=== PATIENT | male | born 1935 | race Caucasian/White ===

== ENCOUNTER 2017-05-12 16:09 | Inpatient (IN) | payer MEDICARE, OTHER ==
[~2017-05-12] VITALS: Ht 177.8 cm; Wt 140.9 kg
[2017-05-12 20:30] VITALS: BP 104/71; PULSE 92; RESP 19; TEMP 96.9; O2SAT 94
[2017-05-12] MEDS ORDERED: GLIP1TAB51 PO (21:33)
[2017-05-12] MEDS ORDERED: COLA100C PO (21:33)
[2017-05-12] MEDS ORDERED: ROSU10 PO (21:33)
[2017-05-12] MEDS ORDERED: COUM10TA PO (21:33)
[2017-05-12] MEDS ORDERED: TRAM50TA PO (21:33)
[2017-05-12] MEDS ORDERED: LISI2.5T3 PO (21:33)
[2017-05-12 21:35] VITALS: PULSE 106
[2017-05-12] MEDS ORDERED: METOPROLOL TARTRATE 25 MG TAB PO PRN (22:15)
[2017-05-12] MEDS ORDERED: SODIUM CHLORID 0.9% 500 ML IV PRN (22:15)
[2017-05-12] MEDS ORDERED: INSULIN HUMAN REGULAR 1,000 UNITS/10 ML VIAL SQ PRN (22:15)
[2017-05-12] MEDS ORDERED: POVIDONE IODINE 5% (ANTISEPSIS KIT) 4 APPLICATIONS EACH NARE PRN (22:15)
[2017-05-12] MEDS ORDERED: CHLORHEXIDINE GLUCONATE 2 % 1 PACK (2 CLOTHS) TOPICAL PRN (22:15)
[2017-05-12] MEDS ORDERED: LACTATED RINGER'S 1000 ML IV PRN (22:15)
[2017-05-12] MEDS ORDERED: NALOXONE HCL 0.4 MG/ML AMP IV PRN (22:30)
[2017-05-12] MEDS: MORPHINE SULFATE 30 MG/30 ML PCA IV SCH (22:40)
[2017-05-12] MEDS: LACTATED RINGER'S 1000 ML INJ 1,000 ML IV SCH (22:43)
[2017-05-13] VITALS (10 sets, daily range): BP systolic 113–157; BP diastolic 49–93; PULSE 93–116; RESP 18–20; TEMP 97.8–99.3; O2SAT 92–100
[2017-05-13 00:14] LABS: BLOOD, URINE NEG (NEG); GLUCOSE,URINE 70 mg/dL (NEG); HYALINE CAST, URINE 1 /lpf (RARE); KETONE, URINE TRACE mg/dL (NEG); MUCUS URINE FEW /lpf (OCC); NITRITE,URINE NEG (NEG); URINE COLOR YELLOW (YELLW/STRAW)
[2017-05-13 00:15] LABS: COMMENT (UR) CULT NOT INDICATED; CULTURE IF INDICATED CULT NOT INDICATED
[2017-05-13] MEDS: PCA - TOTAL MG MORPHINE DELIVERED PER SHIFT SCH ×3 (06:00→22:00)
--- NOTE | 2017-05-13 06:30 | PD.ORT.PN ---
Subjective Subjective Remarks s/p fall at home. transferred from [facility] [place] reports left hip pain. no other complaints history of Afib and takes coumadin Objective Vitals Vital Signs Date Time Temp Pulse Resp B/P Pulse Ox O2 Delivery O2 Flow Rate FiO2 05/13/17 04:35 97.8 93 18 135/78 94 05/13/17 00:30 98.2 94 18 150/76 95 05/12/17 21:35 106 05/12/17 20:30 96.9 92 19 104/71 94 I/O 05/12/17 05/12/17 05/12/17 05/13/17 05/13/17 05/13/17 07:00 15:00 23:00 07:00 15:00 23:00 Intake Total 240 ml 448 ml Balance 240 ml 448 ml Intake Oral 240 ml IV Total 448 ml Objective Remarks LLE: +bucks traction. pain with movement of hip. nvi Assessment & Plan Assessment and Plan 1) Left Periprosthetic Proximal Femur fx -sign consents -INR came back today as 1.8. too high to safely proceed with surgery today. -regular diet -NPO after MN -10mg Vit K -redraw INR at 1500 -plan for surgery tomorrow Amari Almonte May 13, 2017 06:30
[2017-05-13 06:58] LABS: INTERNATIONAL NORMALIZED RATIO 1.8 RATIO; PROTHROMBIN TIME - PATIENT 20.1 SEC (9.8-11.6)
[2017-05-13 06:59] LABS: AUTOMATED NEUTROPHIL # 3.9 TH/MM3 (1.8-7.7); BASOPHIL % 0.4 % (0.0-2.0); EOSINOPHIL # 0.3 TH/MM3 (0-0.4); EOSINOPHIL % 5.6 % (0.0-4.0); HEMATOCRIT 35.2 % (39.0-51.0); HEMO FLAGS DIFF FINAL; LYMPH % 16.5 % (9.0-44.0); MEAN CORPUSCULAR HEMOGLOBIN 32.3 PG (27.0-34.0); MONO % 13.2 % (0.0-8.0); NEUT % 64.3 % (16.0-70.0); PLATELET COUNT 121 TH/MM3 (150-450); RED BLOOD COUNT 3.71 MIL/MM3 (4.50-5.90); RED CELL DISTRIBUTION WIDTH 13.6 % (11.6-17.2); WHITE BLOOD COUNT 6.1 TH/MM3 (4.0-11.0)
[2017-05-13 07:17] LABS: BICARBONATE 27.7 MEQ/L (21.0-32.0); POTASSIUM 4.8 MEQ/L (3.5-5.1)
--- NOTE | 2017-05-13 07:52 | EKG ---
Date Performed: 05/12/2017 Time Performed: 21:57:54 PTAGE: 81 years EKG: ATRIAL FIBRILLATION MODERATE INTRAVENTRICULAR CONDUCTION DELAY ABNORMAL RHYTHM ECG NO PREVIOUS TRACING DOCTOR: Milan Hooks Interpretating Date/Time 05/13/2017 07:49:39
[2017-05-13] MEDS ORDERED: PHYTONADIONE 10 MG/ML VIAL SQ ONE (08:30)
--- NOTE | 2017-05-13 08:35 | HHI.HP ---
[facility] Service Orthopedic Surgeons Primary Care Physician Ash Mera MD Admission Diagnosis Left Periprosthetic Proximal Femur Fracture Diagnoses: (1) Closed fracture of proximal end of femur Diagnosis: Principal Chief Complaint: Left Hip pain s/p fall at home Travel History International Travel<30 Days: No Contact w/Intl Traveler <30 Da: No History of Present Illness [facility] after suffering a fall at home. Patient states he slipped and fell at home and landed on his left leg. Reports immediate hip pain and was unable to walk. Was taken to [facility] where xrays were performed and diagnosed with left proximal femur fracture. Was transferred to [facility] where Dr Glover agreed to take over care. Patient denies any pain any where else other than left leg. Reports pain with movement or attempted weight bearing. Denies numbness, tingling, loss of sensation, loss of consciousness, dizziness, temperatures. Reports history of Afib for which he take coumadin and had an INR upon arrival of 2.8. Review of Systems Constitutional: DENIES: Diaphoretic episodes, Fatigue, Fever, Weight gain, Weight loss, Chills, Dizziness, Change in appetite, Night Sweats Cardiovascular: DENIES: Chest pain, Palpitations, Syncope, Dyspnea on Exertion , PND, Lower Extremity Edema, Orthopnea, Claudication Neurologic: DENIES: Abnormal gait, Headache, Localized weakness, Paresthesias, Seizures, Speech Problems, Tremor, Poor Balance Complete 12 point ROS completed and negative except for what is mentioned in the HPI Past Family Social History Past Medical History Afib knee replacement by Dr Singh HTN Hypercholesterolemia DMII Past Surgical History TKA by Dr Singh Reported Medications Current Medications Medications (Trade) Dose Ordered Sig/Sayra Route PRN Reason Start Time Stop Time Status Last Admin Dose Admin Lactated Ringer's 1,000 ml @ 30 mls/hr Q24H PRN IV SEE LABEL COMMENTS 05/12/17 22:15 05/15/17 22:14 Sodium Chloride (NS 500 ml Inj) 500 ml @ 30 mls/hr [id number] PRN IV SEE LABEL COMMENTS 05/12/17 22:15 05/15/17 22:14 Morphine Sulfate (Morphine 1 Mg/ ml DAMPENER OPERATOR) 30 mg UNSCH IV 05/12/17 22:30 05/12/17 22:40 DAMPENER OPERATOR Dosage Infused (Pha) 1 Q8HR .XX 05/13/17 06:00 05/13/17 06:00 Naloxone HCl 0.4 mg 0.4 mg UNSCH PRN IV RESPIRATORY RATE LESS THAN 10 05/12/17 22:30 Lactated Ringer's (Lr 1000 ml Inj) 1,000 ml @ 80 mls/hr [id number] IV 05/12/17 22:30 05/12/17 22:43 Docusate Sodium (Colace) 100 mg BID PO 05/13/17 09:00 Glipizide (Glucotrol) 10 mg DAILY@ PO 05/13/17 08:00 Lisinopril (Prinivil) 2.5 mg DAILY PO 05/13/17 09:00 Atorvastatin Calcium (Lipitor) 20 mg HS PO 05/13/17 21:00 Allergies: Coded Allergies: No Known Allergies (Unverified , 05/12/17) patient reports no allerigies to food or medications Active Ordered Medications Current Medications Medications (Trade) Dose Ordered Sig/Sayra Route Start Time Stop Time Status Last Admin Lactated Ringer's 1,000 ml @ 30 mls/hr Q24H PRN IV 05/12/17 22:15 05/15/17 22:14 (NS 500 ml Inj) 500 ml @ 30 mls/hr [id number] PRN IV 05/12/17 22:15 05/15/17 22:14 (Morphine 1 Mg/ ml DAMPENER OPERATOR) 30 mg UNSCH IV 05/12/17 22:30 05/12/17 22:40 DAMPENER OPERATOR Dosage Infused (Pha) 1 Q8HR .XX 05/13/17 06:00 05/13/17 06:00 Naloxone HCl 0.4 mg 0.4 mg UNSCH PRN IV 05/12/17 22:30 (Lr 1000 ml Inj) 1,000 ml @ 80 mls/hr [id number] IV 05/12/17 22:30 05/12/17 22:43 (Colace) 100 mg BID PO 05/13/17 09:00 (Glucotrol) 10 mg DAILY@, PO 05/13/17 08:00 (Prinivil) 2.5 mg DAILY PO 05/13/17 09:00 (Lipitor) 20 mg HS PO 05/13/17 21:00 Reported Meds & Active Scripts Active Reported Coumadin (Warfarin) 10 Mg Tab 10 Mg PO DAILY Glipizide ER (Glipizide) 10 Mg Isabelle 10 Mg PO DAILY Take with breakfast or first main meal of the day Tramadol (Tramadol HCl) 50 Mg Tab 50 Mg PO BID PRN Crestor (Rosuvastatin Calcium) 10 Mg Tab 10 Mg PO HS Lisinopril 2.5 Mg Tab 2.5 Mg PO DAILY Colace (Docusate Sodium) 100 Mg Capsule 100 Mg PO BID Family History noncontributory Physical Exam Vital Signs Vital Signs Date Time Temp Pulse Resp B/P Pulse Ox O2 Delivery O2 Flow Rate FiO2 05/13/17 06:48 Room Air 05/13/17 04:35 97.8 93 18 135/78 94 05/13/17 00:30 98.2 94 18 150/76 95 05/12/17 21:35 106 05/12/17 20:30 96.9 92 19 104/71 94 Physical Exam General: well developed, well nourished, overweight 81yo white male in no acute distress Head: NC/AT Ears: Hearing intact bilaterally Eyes: Extraoccular motion intact. PERRL. Cranial Nerves: CN II-XII grossly intact Neck: supple no evidence of lymphadenopathy Abdomen: S/NT/ND Lungs: no audible wheezes at bedside. no use of accessory muscles while breathing Heart: no grade IV murmur present MSK: LLE - +bucks traction. NVI. pain with motion of hip RLE - full motion. no pain. NVI BUE - Full motion. no pain. NVI Laboratory Laboratory Tests Test 05/12/17 05/13/17 05/13/17 05/13/17 23:58 06:08 06:25 06:26 Urine Color YELLOW Urine Turbidity CLEAR Urine pH 5.0 Urine Specific [place] 1.022 Urine Protein TRACE Urine Glucose (UA) 70 Urine Ketones TRACE Urine Occult Blood NEG Urine Nitrite NEG Urine Bilirubin NEG Urine Urobilinogen LESS THAN 2.0 Urine Leukocyte Esterase NEG Urine RBC LESS THAN 1 Urine WBC 2 Urine Hyaline Casts 1 Urine Mucus FEW Microscopic Urinalysis Comment CULT NOT INDICATED Crossmatch Leukocyte-Reduced Red Blood Cells Blood Bank Comment Blood Type A POSITIVE A POSITIVE White Blood Count 6.1 Red Blood Count 3.71 Hemoglobin 12.0 Hematocrit 35.2 Mean Corpuscular Volume 95.0 Mean Corpuscular Hemoglobin 32.3 Mean Corpuscular Hemoglobin 34.0 Concent Red Cell Distribution Width 13.6 Platelet Count 121 Mean Platelet Volume 7.9 Neutrophils (%) (Auto) 64.3 Lymphocytes (%) (Auto) 16.5 Monocytes (%) (Auto) 13.2 Eosinophils (%) (Auto) 5.6 Basophils (%) (Auto) 0.4 Neutrophils # (Auto) 3.9 Lymphocytes # (Auto) 1.0 Monocytes # (Auto) 0.8 Eosinophils # (Auto) 0.3 Basophils # (Auto) 0.0 CBC Comment DIFF FINAL Differential Comment Prothrombin Time 20.1 Prothromb Time International 1.8 Ratio Sodium Level 135 Potassium Level 4.8 Chloride Level 103 Carbon Dioxide Level 27.7 Anion Gap 4 Blood Urea Nitrogen 24 Creatinine 1.37 Estimat Glomerular Filtration 50 Rate Random Glucose 219 Calcium Level 8.2 Antibody Screen NEGATIVE Result Diagram: 05/13/1762505/13/17625 Imaging Xrays reviewed from [facility] which show a displaced left periprosthetic proximal femur fracture Assessment & Plan Problem List: (1) Closed fracture of proximal end of femur Assessment and Plan 1) Left Periprosthetic Proximal Femur fx treatment options discussed with patient. this is a problem that will require surgical intervention. The patient agreed and consent was given to proceed with ORIF of left proximal femur. -sign consents -INR came back today as 1.8. too high to safely proceed with surgery today. -regular diet -NPO after MN -10mg Vit K -redraw INR at 1500 -plan for surgery tomorrow Amari Almonte May 13, 2017 08:35
[2017-05-13] MEDS: glipiZIDE 10 MG TAB PO SCH ×2 (09:09→17:27)
[2017-05-13] MEDS: LISINOPRIL 5 MG TAB PO SCH (09:09)
[2017-05-13] MEDS: DOCUSATE SODIUM 100 MG CAP PO SCH ×2 (09:10→23:03)
[2017-05-13] MEDS ORDERED: ONDANSETRON HCL 4 MG/2 ML VIAL IVP PRN (09:30)
[2017-05-13] MEDS ORDERED: SENNOSIDES 8.6 MG TAB PO PRN (09:30)
[2017-05-13] MEDS ORDERED: LACTULOSE SYRUP 20 GM/30 ML CUP PO PRN (09:30)
[2017-05-13] MEDS ORDERED: NALOXONE HCL 0.4 MG/ML AMP IV PRN (09:30)
[2017-05-13] MEDS ORDERED: cloNIDine HCL 0.1 MG TAB PO PRN (09:30)
[2017-05-13] MEDS ORDERED: DEXTROSE 50% IN WATER 50 ML VIAL(D50) IV PRN (09:30)
[2017-05-13] MEDS ORDERED: GLUCAGON 1 MG/ML VIAL OTHER PRN (09:30)
[2017-05-13] MEDS ORDERED: ACETAMINOPHEN/HYDROcodone 325 MG/5 MG TAB PO PRN (09:30)
[2017-05-13] MEDS ORDERED: ACETAMINOPHEN 325 MG TAB PO PRN ×2 (09:30)
[2017-05-13] MEDS ORDERED: ACETAMINOPHEN/HYDROcodone 325 MG/10 MG TAB PO PRN (09:30)
[2017-05-13] MEDS ORDERED: PILL SPLITTER OTHER PRN (09:45)
[2017-05-13] MEDS ORDERED: LORazepam 2 MG TAB PO PRN (10:15)
[2017-05-13] MEDS ORDERED: LORazepam 1 MG TAB PO PRN (10:15)
[2017-05-13] MEDS ORDERED: HALOPERIDOL LACTATE 5 MG/ML AMP IM PRN (10:15)
[2017-05-13] MEDS ORDERED: FLUMAZENIL 0.5 MG/5 ML VIAL IV PUSH PRN (10:15)
[2017-05-13] MEDS ORDERED: LORazepam 2 MG/ML VIAL IV PUSH PRN ×4 (10:15)
[2017-05-13] MEDS: METOPROLOL TARTRATE 25 MG TAB PO SCH ×2 (10:23→23:03)
--- NOTE | 2017-05-13 11:12 | PD.WCN.NOT ---
Wound Consult Description: Consult for Wound Management of right lea per Dr Glover Communicated with: Radha Yarbrough, RN Recommendation: Daily to right lower extremity: 1. Apply Single layer Xeroform to open wounds only 2. Cover with 4x4's 3. Secure with rolled gauze and tape 4. Date dressing Additional Information: Late Entry Patient seen @ 0840 this morning on [address] for wound management of right lea. Patient is noted in bucks traction on left leg. Right leg dressing of rolled gauze and Xeroform was removed to reveal light purple discoloration noted to the gaiter area of the moist leg with 3 wounds to lower anterior leg and 1 laterally on the lower leg. Patient states these wounds are from an accident prior to admission. All wounds on right lower extremity are partial thickness skinloss with red granulation tissue noted throughout wound beds without active drainage and without odor noted. Periwounds appear moist from the removed Xeroform that was covering the wounds and their periwounds. The most distal anterior P.T.S.L. wound measures 1.2cm x 1.4cm x 0.1cm and within this periwound there is a P.T.S.L. wound measuring 0.2cm x 0.2cm x <0.1cm and then within this periwound there is another P.T.S.L. wound measuring 0.4cm x 0.4cm x <0.1cm. There is a wound noted laterally measuring 0.6cm x 0.6cm x <0.1cm. All wounds were cleansed with NS and gauze. Single layer Xeroform was cut and applied to open wound beds only and covered with 4x4 gauze and secured with rolled gauze and tape, no tape was applied to skin. Corrine Mcwilliams [facility] May 13, 2017 11:11
[2017-05-13] MEDS: LACTATED RINGER'S 1000 ML INJ 1,000 ML IV SCH ×2 (12:12→23:05)
[2017-05-13] MEDS: INSULIN ASPART SUPPLEMENTAL SCALE SQ SCH ×3 (12:17→23:04)
--- NOTE | 2017-05-13 13:15 | PD.CONS ---
HPI Service [facility] Hospitalists Consult Requested By Rajeev Glover M.D. Reason for Consult Medical management Primary Care Physician Ash Mera MD Diagnoses: (1) Closed fracture of proximal end of femur History of Present Illness Written by Peng Conn, acting as scribe for Dr. Costa Palencia on 05/13/17 at 1315. Mr. Monroe is 81 yo, with past medical history inclusive of Atrial Fibrillation (stable since 1985), diabetes mellitus II (also stable diagnosed in 2000) and hyperlipidemia which is controlled. Mr. Monroe reported having had his right knee surgically repaired, with 5 interventions reported. It was during his last revision he reported to have developed septic shock. Mr. Monroe was initially admitted to [facility] on 05/12/17 after suffering a fall at home. He stated he "slipped on water" at home and landed on his left leg. He is said to have experienced immediate left hip pain and was unable to stand or walk. X-rays obtained indicated the presence of left proximal femur fracture. Mr. Monroe was subsequently transferred to [facility] with Dr Glover attending. Dr. Glover has consulted the hospitalist team to medically manage Mr. Monroe's non-orthopedic health issues. RN called 2/2 RVR in the 120s. Denies chest pain, shortness of breath, palpitations, nausea and vomiting Review of Systems Except as stated in HPI: all other systems reviewed are Neg Past Family Social History Allergies: Coded Allergies: No Known Allergies (Unverified , 05/12/17) patient reports no allerigies to food or medications Past Medical History Atrial Fibrillation (stable since 1985) diabetes mellitus II (diagnosed in 2000) hyperlipidemia Septic Shock. Past Surgical History Right knee repair with revision (5 procedures). Reported Medications Reported Meds & Active Scripts Active Reported Coumadin (Warfarin) 10 Mg Tab 10 Mg PO DAILY Glipizide ER (Glipizide) 10 Mg Isabelle 10 Mg PO DAILY Take with breakfast or first main meal of the day Tramadol (Tramadol HCl) 50 Mg Tab 50 Mg PO BID PRN Crestor (Rosuvastatin Calcium) 10 Mg Tab 10 Mg PO HS Lisinopril 2.5 Mg Tab 2.5 Mg PO DAILY Colace (Docusate Sodium) 100 Mg Capsule 100 Mg PO BID Active Ordered Medications Current Medications Medications (Trade) Dose Ordered Sig/Sayra Route Start Time Stop Time Status Last Admin (Morphine 1 Mg/ ml PLASTIC BOAT PATCHER) 30 mg UNSCH IV 05/12/17 22:30 05/13/17 14:08 PLASTIC BOAT PATCHER Dosage Infused (Pha) 1 Q8HR .XX 05/13/17 06:00 05/13/17 14:09 Naloxone HCl 0.4 mg 0.4 mg UNSCH PRN IV 05/12/17 22:30 (Lr 1000 ml Inj) 1,000 ml @ 80 mls/hr [id number] IV 05/12/17 22:30 05/13/17 12:12 (Colace) 100 mg BID PO 05/13/17 09:00 (Glucotrol) 10 mg DAILY@,17 PO 05/13/17 08:00 05/13/17 17:27 (Prinivil) 2.5 mg DAILY PO 05/13/17 09:00 05/13/17 09:09 (Lipitor) 20 mg HS PO 05/13/17 21:00 (Catapres) 0.1 mg Q6H PRN PO 05/13/17 09:30 (D50w (Vial) Inj) 50 ml UNSCH PRN IV 05/13/17 09:30 (Glucagon Inj) 1 mg UNSCH PRN OTHER 05/13/17 09:30 (Tylenol) 650 mg Q4H PRN PO 05/13/17 09:30 (Zofran Inj) 4 mg Q6H PRN IVP 05/13/17 09:30 (Tylenol) 650 mg Q6H PRN PO 05/13/17 09:30 (Bryan 5-325 Mg) 1 tab Q4H PRN PO 05/13/17 09:30 (Bryan 10-325 Mg) 1 tab Q4H PRN PO 05/13/17 09:30 (Narcan Inj) 0.4 mg UNSCH PRN IV 05/13/17 09:30 (Senokot) 17.2 mg Q12H PRN PO 05/13/17 09:30 (Lactulose Liq) 30 ml DAILY PRN PO 05/13/17 09:30 (Lopressor) 25 mg Q12HR PO 05/13/17 09:30 05/13/17 10:23 (Pill Splitter) 1 ea UNSCH PRN OTHER 05/13/17 09:45 (Folate) 1 mg DAILY PO 05/14/17 09:00 05/19/17 08:59 (Vitamin B1) 100 mg DAILY PO 05/14/17 09:00 (Theragran M Tab) 1 tab DAILY PO 05/14/17 09:00 05/19/17 08:59 (Romazicon Inj) 0.2 mg Q1M PRN IV PUSH 05/13/17 10:15 (Ativan) 1 mg Q4H PRN PO 05/13/17 10:15 (Ativan Inj) 1 mg Q4H PRN IV PUSH 05/13/17 10:15 (Ativan) 2 mg Q2H PRN PO 05/13/17 10:15 (Ativan Inj) 2 mg Q2H PRN IV PUSH 05/13/17 10:15 (Ativan Inj) 2 mg Q1H PRN IV PUSH 05/13/17 10:15 (Ativan Inj) 2 mg Q15M PRN IV PUSH 05/13/17 10:15 (Haldol Inj) 2 mg Q15M PRN IM 05/13/17 10:15 Family History Maternal side of his family is positive for Diabetes. Father of a "heart attack". Sister has Diabetes. Social History Pt reported drink a one ounce shot of Cognitive Code "every night before I go to bed." Denied smoking history. Denied illicit drug history. Physical Exam Vital Signs Vital Signs Date Time Temp Pulse Resp B/P Pulse Ox O2 Delivery O2 Flow Rate FiO2 05/13/17 12:53 100 21 05/13/17 12:00 98.4 93 18 121/77 94 05/13/17 09:15 109 05/13/17 08:00 98.1 116 20 129/71 99 05/13/17 06:48 Room Air 05/13/17 04:35 97.8 93 18 135/78 94 05/13/17 00:30 98.2 94 18 150/76 95 05/12/17 21:35 106 05/12/17 20:30 96.9 92 19 104/71 94 Physical Exam GENERAL: This is a well-nourished, well-developed patient, in no apparent distress. SKIN: No rashes, ecchymoses or lesions. Cool and dry. Олег complected. right lower leg evidenced wound, wrapped in gauze. HEAD: Atraumatic. Normocephalic. No temporal or scalp tenderness. EYES: Pupils equal round and reactive. Extraocular motions intact. No scleral icterus. No injection or drainage. ENT: Nose without bleeding or purulent drainage. Airway patent. NECK: Trachea midline. No JVD or lymphadenopathy. Supple and nontender. CARDIOVASCULAR: Tachycardic rate and irregular rhythm without murmurs, gallops, or rubs. RESPIRATORY: Clear to auscultation. Breath sounds equal bilaterally. No wheezes , rales, or rhonchi. GASTROINTESTINAL: Abdomen soft, non-tender, nondistended. No guarding. MUSCULOSKELETAL: Extremities without clubbing, cyanosis, or edema. No joint tenderness, effusion, or edema noted. Left lower extremity laterally rotated in traction boot. NEUROLOGICAL: Awake and alert. Cranial nerves II through XII intact. Motor and sensory grossly within normal limits. Five out of 5 muscle strength in all muscle groups. Speech clear and fluent. Laboratory Outside records reviewed. Chest x-ray without acute findings. Patient has anemia, thrombocytopenia and elevated creatinine Laboratory Tests Test 05/12/17 05/13/17 05/13/17 05/13/17 23:58 06:08 06:25 06:26 Urine Color YELLOW Urine Turbidity CLEAR Urine pH 5.0 Urine Specific [place] 1.022 Urine Protein TRACE Urine Glucose (UA) 70 Urine Ketones TRACE Urine Occult Blood NEG Urine Nitrite NEG Urine Bilirubin NEG Urine Urobilinogen LESS THAN 2.0 Urine Leukocyte Esterase NEG Urine RBC LESS THAN 1 Urine WBC 2 Urine Hyaline Casts 1 Urine Mucus FEW Microscopic Urinalysis Comment CULT NOT INDICATED Crossmatch Leukocyte-Reduced Red Blood Cells Blood Bank Comment Blood Type A POSITIVE A POSITIVE White Blood Count 6.1 Red Blood Count 3.71 Hemoglobin 12.0 Hematocrit 35.2 Mean Corpuscular Volume 95.0 Mean Corpuscular Hemoglobin 32.3 Mean Corpuscular Hemoglobin 34.0 Concent Red Cell Distribution Width 13.6 Platelet Count 121 Mean Platelet Volume 7.9 Neutrophils (%) (Auto) 64.3 Lymphocytes (%) (Auto) 16.5 Monocytes (%) (Auto) 13.2 Eosinophils (%) (Auto) 5.6 Basophils (%) (Auto) 0.4 Neutrophils # (Auto) 3.9 Lymphocytes # (Auto) 1.0 Monocytes # (Auto) 0.8 Eosinophils # (Auto) 0.3 Basophils # (Auto) 0.0 CBC Comment DIFF FINAL Differential Comment Prothrombin Time 20.1 Prothromb Time International 1.8 Ratio Sodium Level 135 Potassium Level 4.8 Chloride Level 103 Carbon Dioxide Level 27.7 Anion Gap 4 Blood Urea Nitrogen 24 Creatinine 1.37 Estimat Glomerular Filtration 50 Rate Random Glucose 219 Calcium Level 8.2 Total Creatine Kinase 107 Antibody Screen NEGATIVE Result Diagram: 05/13/1762505/13/17625 Assessment and Plan Problem List: (1) Closed fracture of proximal end of femur ICD Code: S72.009A Status: Acute Assessment and Plan Closed fracture left femur -surgical, rehab and pain management to be addressed by Orthopedics. Diabetes- Continue home regimen of Glipizide 10mg daily. -Finger sticks q ac and hs -Sliding scale insulin. Atrial Fibrillation with RVR -Start Metoprolol 25 mg q 12 hr -Hold pt's Coumadin in advance of surgery. Resume when cleared by orthopedics. Coagulopathy secondary to Coumadin. Vitamin K has been ordered. Repeat INR has also been ordered later today. We'll monitor Acute kidney injury denies history of kidney disease. Obtain CK suspected rhabdomyolysis from the fall. Continue IV hydration and avoid nephrotoxins. Consider stopping lisinopril Hyperlipidemia. Continue statin Alcohol abuse -[facility] protocol -Thiamine -Folic acid -multivitamin GI prophylaxis: Pepcid DVT prophylaxis: SCD's until cleared by Orthopedics to initiate pharmacological coverage. Code Status Full Code Discussed Condition With Patient This note was transcribed by edith Conn. I, Dr. Costa Palencia personally performed the history, physical exam, and medical decision making; and confirmed the accuracy of the information in the transcribed note. Authenticated by Dr. Costa Palencia on 05/13/17 at 1315. Problem Qualifiers (1) Closed fracture of proximal end of femur: Qualified Code: S72.002A - Closed fracture of proximal end of femur, left, initial encounter Peng Conn Jr. May 13, 2017 13:15 Costa Palencia MD May 13, 2017 13:15
[2017-05-13] MEDS: MORPHINE SULFATE 30 MG/30 ML PCA IV SCH (14:08)
[2017-05-13 17:49] LABS: INTERNATIONAL NORMALIZED RATIO 1.6 RATIO
[2017-05-13] MEDS ORDERED: NON-FORMULARY DRUG (Rosuvastatin (Crestor) 10 MG) PO SCH (21:00)
[2017-05-13] MEDS: ATORVASTATIN 20 MG TAB PO SCH (23:03)
[2017-05-13] MEDS: FAMOTIDINE 20 MG TAB PO SCH (23:07)
[2017-05-14] VITALS (10 sets, daily range): BP systolic 114–161; BP diastolic 62–80; PULSE 74–101; RESP 16–19; TEMP 96.2–99; O2SAT 92–98
[2017-05-14] MEDS: PCA - TOTAL MG MORPHINE DELIVERED PER SHIFT SCH ×3 (06:00→21:21)
[2017-05-14] MEDS: INSULIN ASPART SUPPLEMENTAL SCALE SQ SCH ×4 (06:34→21:21)
--- NOTE | 2017-05-14 06:40 | PD.ORT.PN ---
Subjective Subjective Remarks s/p fall at home. transferred from [facility] in [place] reports left hip pain. no other complaints history of Afib and takes coumadin been monitory INR and attempting to lower to safe level for surgery. Objective Vitals Vital Signs Date Time Temp Pulse Resp B/P Pulse Ox O2 Delivery O2 Flow Rate FiO2 05/14/17 03:00 98.8 74 18 114/62 98 05/14/17 02:41 98.0 84 16 125/63 92 05/14/17 00:21 99.0 101 18 95 05/13/17 23:30 99.0 106 18 157/93 95 05/13/17 20:23 99.1 97 19 113/49 95 05/13/17 20:20 92 05/13/17 19:29 Room Air 05/13/17 16:00 99.3 106 18 115/67 95 05/13/17 14:09 18 05/13/17 14:08 17 05/13/17 12:53 100 21 05/13/17 12:00 98.4 93 18 121/77 94 05/13/17 09:15 109 05/13/17 08:00 98.1 116 20 129/71 99 05/13/17 06:48 Room Air I/O 05/13/17 05/13/17 05/13/17 05/14/17 05/14/17 05/14/17 07:00 15:00 23:00 07:00 15:00 23:00 Intake Total 448 ml 1346 ml 713 ml 830 ml Output Total 625 ml 450 ml 100 ml Balance -177 ml 896 ml 613 ml 830 ml Intake Oral 480 ml 480 ml IV Total 448 ml 866 ml 233 ml 202 ml FFP 628 ml Output Urine Total 625 ml 450 ml 100 ml # Voids 4 # Bowel Movements 0 0 Result Diagram: 05/13/17 0626 05/13/17 06 Other Results Laboratory Tests Test 05/13/17 17:12 Prothrombin Time 18.0 SEC (9.8-11.6) Prothromb Time International 1.6 RATIO Ratio Objective Remarks LLE: +bucks traction. pain with movement of hip. nvi Assessment & Plan Problem List: (1) Closed fracture of proximal end of femur Assessment and Plan 1) Left Periprosthetic Proximal Femur fx -plan for surgery today of left hip -awaiting AM INR. last reported INR was 1.6. would like lower. Amari Almonte May 14, 2017 06:40
--- NOTE | 2017-05-14 07:13 | MH ---
cc: VASILIY JARAMILLO DATE OF ADMISSION: 05/12/2017 REASON FOR ADMISSION Left proximal femur fracture. HISTORY OF PRESENT ILLNESS Brenden is a 81-year-old male who had a fall. He slipped on a wet floor. He landed on his left side. He had immediate left leg pain. He was unable to stand or ambulate. He presented to [facility]. X-rays revealed a comminuted displaced left proximal femur fracture. He was subsequently transferred to [place] for definitive treatment of this injury. His only complaint currently is his left hip and leg. He does have a history of atrial fibrillation and is on Coumadin. His INR has been elevated secondary to Coumadin. He is currently awake and alert on the orthopedic floor. Pain is worse with movement. PAST MEDICAL HISTORY ALLERGIES None. ILLNESSES 1. Atrial fibrillation. 2. Diabetes. 3. Hypertension. SURGERIES Left knee surgery x5. MEDICATIONS 1. Coumadin. 2. Glipizide. 3. Tramadol. 4. Crestor. 5. Lipitor. 6. Colace. FAMILY HISTORY Positive for diabetes on his mother's side and coronary artery disease on his father's side. SOCIAL HISTORY He states he has one drink a day. He denies smoking or drug use. REVIEW OF SYSTEMS The patient denies headache, visual changes, neck pain, chest pain, shortness of breath, abdominal pain, nausea, vomiting or recent weight loss. He complains of left hip pain. He denies any dizziness or syncope. PHYSICAL EXAMINATION GENERAL: The patient is a well-developed, well-nourished 81-year-old male who is moderately overweight. He is awake and alert. He is alert and oriented x3. VITAL SIGNS: Temperature 98.1, pulse 116, respirations 20, blood pressure 129/71. O2 sat is 99% on room air. HEAD: The patient is normocephalic. Pupils are equal. NECK: Soft, nontender. Trachea is midline. ABDOMEN: Soft, nontender, nondistended. EXTREMITIES: Examination of bilateral upper extremities reveals no significant pain with shoulder, elbow or wrist motion. He has intact sensation in all fingers. Skin is intact to both hands. Radial pulses are palpable. Examination of right leg reveals no pain with hip, knee or ankle motion. Skin is intact. Dorsalis pedis pulse is palpable. Examination of left leg reveals pain with any hip motion. He has well-healed incisions from previous knee surgeries. Sensation is intact. X-RAYS X-rays of the left hip were reviewed. X-rays reveal a comminuted proximal femur intertrochanteric fracture. 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 IMPRESSION 1. Atrial fibrillation. 2. Diabetes. 3. Comminuted left proximal femur fracture. PLAN The treatment options were discussed with the patient. At this point I would recommend open reduction, internal fixation of left proximal femur. The risks of surgery include bleeding, infection, injuries to arteries, nerves and blood vessels, nonunion, malunion, avascular necrosis, need for hip replacement, as well as medical complications including blood clot, stroke, heart attack and . All questions were answered. I will plan on surgery today or tomorrow when his INR is corrected. A mid-level provider in my office, nurse practitioner or PA, may see this patient on a follow-up basis and continue to implement the objective of this plan including: Starting or adjusting medications, injections of muscle, tendon, bursa or joints, cast application, orthotic or brace application, physical therapy, further radiographic studies including x-ray, MRI, CT, ultrasounds or bone scan, vascular studies, neurologic studies, or other specialist consultations, and proceeding with surgical management as appropriate. MD CICI Jon/NORA /6:55 AM /7:06 AM
[2017-05-14] MEDS: FOLIC ACID 1 MG TAB PO SCH (07:17)
[2017-05-14] MEDS: FAMOTIDINE 20 MG TAB PO SCH ×2 (07:17→21:19)
[2017-05-14] MEDS: THIAMINE HCL 100 MG TAB PO SCH (07:17)
[2017-05-14] MEDS: DOCUSATE SODIUM 100 MG CAP PO SCH ×2 (07:17→21:20)
[2017-05-14] MEDS: MULTIVITAMINS/MINERALS THERAPEUTIC TAB PO SCH (07:17)
[2017-05-14] MEDS: glipiZIDE 10 MG TAB PO SCH ×2 (07:17→17:06)
[2017-05-14 07:26] LABS: AUTOMATED NEUTROPHIL # 3.3 TH/MM3 (1.8-7.7); BASOPHIL % 0.4 % (0.0-2.0); EOSINOPHIL # 0.3 TH/MM3 (0-0.4); EOSINOPHIL % 5.7 % (0.0-4.0); HEMATOCRIT 32.3 % (39.0-51.0); HEMO FLAGS DIFF FINAL; LYMPH % 19.1 % (9.0-44.0); MEAN CELL VOLUME 95.1 FL (80.0-100.0); MEAN CORPUSCULAR HEMOGLOBIN 31.8 PG (27.0-34.0); MEAN CORPUSCULAR HGB CONC 33.4 % (32.0-36.0); MONO % 11.8 % (0.0-8.0); PLATELET COUNT 101 TH/MM3 (150-450); RED BLOOD COUNT 3.39 MIL/MM3 (4.50-5.90); WHITE BLOOD COUNT 5.3 TH/MM3 (4.0-11.0)
[2017-05-14 07:31] LABS: INTERNATIONAL NORMALIZED RATIO 1.2 RATIO; PROTHROMBIN TIME - PATIENT 13.5 SEC (9.8-11.6)
[2017-05-14] MEDS: METOPROLOL TARTRATE 25 MG TAB PO SCH ×2 (07:45→21:19)
[2017-05-14] MEDS: LISINOPRIL 5 MG TAB PO SCH (07:45)
[2017-05-14 07:49] LABS: BICARBONATE 29.6 MEQ/L (21.0-32.0); MAGNESIUM 1.9 MG/DL (1.5-2.5); POTASSIUM 4.3 MEQ/L (3.5-5.1)
--- NOTE | 2017-05-14 09:19 | HHI.PR ---
Subjective Remarks Follow-up A. fib and coagulopathy. No bleeding, chest pain, palpitations shortness of breath. Seen in the holding area. Discussed with RN and orthopedic PA Objective Vitals Vital Signs Date Time Temp Pulse Resp B/P Pulse Ox O2 Delivery O2 Flow Rate FiO2 05/14/17 08:00 96.7 82 16 161/73 97 05/14/17 07:49 Room Air 05/14/17 07:14 94 05/14/17 03:00 98.8 74 18 114/62 98 05/14/17 02:41 98.0 84 16 125/63 92 05/14/17 00:21 99.0 101 18 95 05/13/17 23:30 99.0 106 18 157/93 95 05/13/17 20:23 99.1 97 19 113/49 95 05/13/17 20:20 92 05/13/17 19:29 Room Air 05/13/17 16:00 99.3 106 18 115/67 95 05/13/17 14:09 18 05/13/17 14:08 17 05/13/17 12:53 100 21 05/13/17 12:00 98.4 93 18 121/77 94 I/O 05/13/17 05/13/17 05/13/17 05/14/17 05/14/17 05/14/17 07:00 15:00 23:00 07:00 15:00 23:00 Intake Total 448 ml 1346 ml 713 ml 830 ml Output Total 625 ml 450 ml 100 ml Balance -177 ml 896 ml 613 ml 830 ml Intake Oral 480 ml 480 ml 0 ml IV Total 448 ml 866 ml 233 ml 202 ml FFP 628 ml Output Urine Total 625 ml 450 ml 100 ml # Voids 4 3 # Bowel Movements 0 0 0 Result Diagram: 05/14/17 0633 05/14/17 0633 Objective Remarks GENERAL: This is a well-nourished, well-developed patient, in no apparent distress. SKIN: No rashes, ecchymoses or lesions. Cool and dry. HEAD: Atraumatic. Normocephalic. No temporal or scalp tenderness. EYES: Pupils equal round and reactive. Extraocular motions intact. No scleral icterus. No injection or drainage. ENT: Nose without bleeding or purulent drainage. Airway patent. NECK: Trachea midline. No JVD or lymphadenopathy. Supple and nontender. CARDIOVASCULAR: Regular rate and irregular rhythm without murmurs, gallops, or rubs. RESPIRATORY: Clear to auscultation. Breath sounds equal bilaterally. No wheezes , rales, or rhonchi. GASTROINTESTINAL: Abdomen soft, non-tender, nondistended. No guarding. MUSCULOSKELETAL: Extremities without clubbing, cyanosis, or edema. No joint tenderness, effusion, or edema noted. Left lower extremity laterally rotated NEUROLOGICAL: Awake and alert. Cranial nerves II through XII intact. Motor and sensory grossly within normal limits. Five out of 5 muscle strength in all muscle groups. Speech clear and fluent. A/P Problem List: (1) Closed fracture of proximal end of femur ICD Code: S72.009A Status: Acute Assessment and Plan Closed fracture left femur -for definitive repair today. Nothing by mouth, pain management with Lortab and IV morphine, wound care, PT, incentive spirometry and DVT prophylaxis per orthopedic surgery Diabetes- Continue home regimen of Glipizide 10mg daily currently on hold secondary to nothing by mouth status. -Finger sticks q ac and hs -Sliding scale insulin. Atrial Fibrillation with CVR -Continue Metoprolol 25 mg q 12 hr -Hold pt's Coumadin. Resume when cleared by orthopedics. Coagulopathy secondary to Coumadin. Receive vitamin K.. Repeat INR 1.2. We' ll monitor Acute kidney injury denies history of kidney disease. Improved. Continue IV hydration and avoid nephrotoxins. Hyperlipidemia. Continue statin Alcohol abuse -[facility] protocol -Thiamine -Folic acid -multivitamin GI prophylaxis: Pepcid DVT prophylaxis: SCD's until cleared by Orthopedics to initiate pharmacological coverage. Requested outpatient labs still pending Problem Qualifiers (1) Closed fracture of proximal end of femur: Qualified Code: S72.002A - Closed fracture of proximal end of femur, left, initial encounter Costa Palencia MD May 14, 2017 09:19
[2017-05-14] MEDS: LACTATED RINGER'S 1000 ML INJ 1,000 ML IV SCH ×3 (09:46→23:46)
[2017-05-14] MEDS: MORPHINE SULFATE 30 MG/30 ML PCA IV SCH (09:50)
[2017-05-14] MEDS ORDERED: GENTAMICIN SULFATE 80 MG/2 ML VIAL ONE (10:04)
[2017-05-14] MEDS ORDERED: VANCOMYCIN HCL 1000 MG VIAL ONE (10:53)
[2017-05-14] MEDS ORDERED: ceFAZolin 2 GM PREMIX 50 ML ONE (10:53)
[2017-05-14] MEDS ORDERED: ceFAZolin INJ 1,000 MG VIAL ONE (10:53)
[2017-05-14] MEDS ORDERED: ACETAMINOPHEN 1000 MG/100 ML VIAL IV ONE (10:57)
[2017-05-14] MEDS ORDERED: SODIUM CHLORIDE 0.9% IV SCH (11:00)
[2017-05-14] MEDS ORDERED: TRANEXAMIC ACID IV SCH (11:00)
[2017-05-14] MEDS ORDERED: GENTAMICIN SULFATE 80 MG/2 ML VIAL IRRIGATION ONE (11:15)
[2017-05-14] MEDS ORDERED: LACTATED RINGER'S 1000 ML INJ 1,000 ML IV ONE (12:00)
[2017-05-14] MEDS ORDERED: PHENYLEPH/NS 1000 MCG/10 ML SYR IV ONE (12:00)
[2017-05-14] MEDS ORDERED: NEOSTIGMINE 3 MG/3 ML SYR IV ONE (12:00)
[2017-05-14] MEDS ORDERED: SODIUM CHLOR 0.9% 250 ML INJ 250 ML IV ONE (12:00)
[2017-05-14] MEDS ORDERED: PROPOFOL 200 MG/20 ML AMP IV ONE (12:00)
[2017-05-14] MEDS ORDERED: ONDANSETRON HCL 4 MG/2 ML VIAL IV PUSH ONE (12:00)
[2017-05-14] MEDS ORDERED: VASOPRESSIN INJ 20 UNITS/ML VIAL ONE (13:04)
[2017-05-14] MEDS ORDERED: ATOR20TA15 PO (13:24)
[2017-05-14] MEDS ORDERED: FAMO20TA2 PO (13:24)
[2017-05-14] MEDS ORDERED: METO25TA3 PO (13:24)
[2017-05-14] MEDS ORDERED: GNP100TA3 PO (13:24)
[2017-05-14] MEDS ORDERED: HYDR-3366 PO (14:00)
[2017-05-14] MEDS ORDERED: MISCELLANEOUS NURSING INFORMATION XX PRN (14:00)
[2017-05-14] MEDS ORDERED: SODIUM CHLORIDE 0.9% FLUSH 5 ML FLUSH IVF PRN (14:00)
[2017-05-14] MEDS ORDERED: MORPHINE SULFATE 4 MG/ML INJ IV PUSH PRN (14:00)
[2017-05-14] MEDS ORDERED: Post-op Orders (for Pharmacy) MISC XX ONE (14:00)
[2017-05-14] MEDS ORDERED: ENOXAPARIN SODIUM 30 MG/0.3 ML SYRINGE SQ SCH (14:00)
--- NOTE | 2017-05-14 14:09 | PD.OP ---
cc: Rajeev Mcclain MD Operative Report Date of Surgery: May 14, 2017 Preoperative Diagnosis: Displaced left hip intertrochanteric fracture, displaced left femoral shaft fracture Postoperative Diagnosis: Procedure: Open reduction internal fixation left intertrochanteric hip fracture,, open reduction total fixation left femoral shaft Anesthesia: Gen. Surgeon: Rajeev Mcclain Risk Mgr(s): ADALGISA Cook PA-C The surgical procedure was assisted by my physician assistant hall director. My P.A. presence was necessary throughout this case for the manipulation and positioning of the surgical extremity. My P.A. was assisting me throughout the duration of this procedure. The skill set of a physician assistant hall director was medically necessary to complete this procedure. During the surgical case the rn surgical pcu was working at the back table and the physician assistant hall director was directly assisting me. Operation and Findings: Brenden was seen and evaluated preoperatively. Risk and benefits of surgery were discussed in depth with patient. Informed consent was obtained, operative site was marked. Patient was brought to the OR, placed on OR table, and given IV sedation with GETA. IV antibiotics were administered and timeout procedure was performed. Patient was positioned in lateral decubitus position on a Noah table. Bony prominences were well-padded. The operative leg was prepped with alcohol, followed with Hibiclens, draped in usual sterile fashion. The procedure began with a 12 incision over the lateral aspect of the proximal femur. Subcutaneous tissue was dissected with Bovie. Iliotibial band was split in line with fibers. Vastus lateralis was elevated anteriorly to expose the proximal femur. At this point the femoral shaft fracture was visualized. Traction was applied. Fracture was manipulated. The fracture reduced into excellent alignment. A fracture tenaculum was used to hold provisional fixation. At this point attention was turned towards provisional fixation. A cable passer was passed around intertrochanteric fracture. The cable was tensioned appropriately to help hold reduction. K wires was now cut and crimped. Next attention was turned towards the intertrochanteric hip fracture. The anterior one third of the gluteus medius muscle was split and elevated to allow for exposure of the proximal femur. At this point the inner trochanter fracture could be partially visualized. Care was taken to achieve anatomic reduction. Fracture fragments were manipulated. Fracture keyed in anatomic alignment. Fracture tenaculum was used to help compress fracture. At this point attention was turned towards provisional fixation. A cable passer was passed around intertrochanteric fracture. The cable was tensioned appropriately to help hold reduction. Cable was now cut and crimped. At this point attention was turned to plate placement. A long proximal femur plate was selected to span all fractures.. The plate was placed underneath the vastus lateralis. Steinmann pins were used to hold the plate to bone. Multiplanar fluoroscopy confirmed appropriate placement of plate. The proximal pin was placed through the plate into the center of the femoral head. Fluoroscopy confirmed appropriate reduction of fracture and appropriate guidepin placement. Proximal partially threaded nonlocking screws were placed across the guidepins to give additional compression across the intertrochanteric fracture. Multiple 4.5 cortical screws were now placed in the plate above and below the femoral shaft fracture. The plate was compressed to bone. All screws were predrilled and premeasured for appropriate length. Next the proximal nonlocking screws were treated out for locking screws. Final fluoroscopy revealed excellent alignment of the intertrochanteric fracture and the femoral shaft fracture with well-placed hardware. Wound was thoroughly irrigated. The gluteus medius tendon was repaired with #5 FiberWire suture through drill tunnels in the greater trochanter. Fascia was closed with #1 Vicryl. Subcutaneous tissue was closed with 3-0 Vicryl. Skin was closed with orly. Sterile dressings were applied. The patient was transferred to recovery in stable condition. Needle and sponge counts were correct. Rajeev Mcclain MD May 14, 2017 14:09
--- NOTE | 2017-05-14 14:11 | RADRPT ---
EXAM DATE/TIME: 05/14/2017 13:27 [place] COMPARISON: No previous studies available for comparison. INDICATIONS : Open reduction internal fixation left femur. MEDICAL HISTORY : None. SURGICAL HISTORY : None. ENCOUNTER: Initial ACUITY: 1 day PAIN SCORE: Non-responsive. LOCATION: Left Femur FINDINGS: Plate with screws is seen bridging the femur fracture. Alignment is anatomic. CONCLUSION: Anatomic alignment. Cristhian Mcneal MD FACR on May 14, 2017 at 14:07 Board Certified Radiologist. This report was verified electronically.
[2017-05-14] MEDS ORDERED: DO NOT ADM ANY ANTICOAGULANT DRUGS PRN (14:39)
[2017-05-14] MEDS ORDERED: *morphine SULFATE 8 MG/ML PERIprocedure ONLY ONE ×2 (14:52→15:14)
[2017-05-14] MEDS ORDERED: *ONDANSETRON 4 MG VIAL PERIprocedural Use ONLY ONE (14:56)
[2017-05-14] MEDS: CALCIUM/VITAMIN D 250 MG/125 U TAB PO SCH (17:06)
[2017-05-14] MEDS: WARFARIN SOD 10 MG TAB PO SCH (17:06)
[2017-05-14] MEDS ORDERED: ERGOCALCIFEROL (VIT D2) 50,000 UNIT CAP PO SCH (18:00)
[2017-05-14] MEDS: SODIUM CHLORIDE 0.9% FLUSH 5 ML FLUSH IVF SCH (21:00)
[2017-05-14] MEDS: ATORVASTATIN 20 MG TAB PO SCH (21:19)
[2017-05-14] MEDS: ceFAZolin 2 GM PREMIX 50 ML IV SCH (21:20)
[2017-05-14] MEDS: VANCOMYCIN INJ 1,000 MG in SODIUM CHLOR 0.9% 250 ML INJ 250 ML IV SCH (23:46)
[2017-05-15] VITALS (7 sets, daily range): BP systolic 105–143; BP diastolic 54–79; PULSE 102–112; RESP 17–19; TEMP 98.9–99.4; O2SAT 92–96
[2017-05-15] MEDS ORDERED: MAGNESIUM HYDROXIDE SUSP 30 ML CUP PO PRN (00:15)
[2017-05-15] MEDS: ACETAMINOPHEN/HYDROcodone 325 MG/10 MG TAB PO PRN ×5 (03:30→21:50)
[2017-05-15] MEDS: ceFAZolin 2 GM PREMIX 50 ML IV SCH ×3 (03:31→21:49)
[2017-05-15] MEDS: PCA - TOTAL MG MORPHINE DELIVERED PER SHIFT SCH ×3 (06:00→22:00)
[2017-05-15] MEDS: INSULIN ASPART SUPPLEMENTAL SCALE SQ SCH ×4 (06:35→22:00)
[2017-05-15] MEDS: MORPHINE SULFATE 30 MG/30 ML PCA IV SCH (06:39)
[2017-05-15 06:41] LABS: INTERNATIONAL NORMALIZED RATIO 1.1 RATIO; PROTHROMBIN TIME - PATIENT 12.6 SEC (9.8-11.6)
[2017-05-15 07:00] LABS: BICARBONATE 27.1 MEQ/L (21.0-32.0); MAGNESIUM 1.8 MG/DL (1.5-2.5); POTASSIUM 4.4 MEQ/L (3.5-5.1)
[2017-05-15 07:11] LABS: AUTOMATED NEUTROPHIL # 4.7 TH/MM3 (1.8-7.7); BASOPHIL % 0.2 % (0.0-2.0); EOSINOPHIL # 0.1 TH/MM3 (0-0.4); EOSINOPHIL % 1.8 % (0.0-4.0); HEMATOCRIT 25.5 % (39.0-51.0); HEMO FLAGS DIFF FINAL; LYMPHOCYTE # 0.7 TH/MM3 (1.0-4.8); MEAN CELL VOLUME 94.5 FL (80.0-100.0); MEAN CORPUSCULAR HEMOGLOBIN 33.4 PG (27.0-34.0); MEAN CORPUSCULAR HGB CONC 35.4 % (32.0-36.0); PLATELET COUNT 112 TH/MM3 (150-450); RED CELL DISTRIBUTION WIDTH 13.3 % (11.6-17.2); WHITE BLOOD COUNT 6.2 TH/MM3 (4.0-11.0)
[2017-05-15] MEDS: CHOLECALCIFEROL (VIT D3) 1000 UNIT TAB PO SCH (08:52)
[2017-05-15] MEDS: CALCIUM/VITAMIN D 250 MG/125 U TAB PO SCH ×3 (08:52→16:33)
[2017-05-15] MEDS: DOCUSATE SODIUM 100 MG CAP PO SCH ×2 (08:54→21:49)
[2017-05-15] MEDS: THIAMINE HCL 100 MG TAB PO SCH (08:54)
[2017-05-15] MEDS: glipiZIDE 10 MG TAB PO SCH ×2 (08:54→16:33)
[2017-05-15] MEDS: FAMOTIDINE 20 MG TAB PO SCH ×2 (08:54→21:49)
[2017-05-15] MEDS: MULTIVITAMINS/MINERALS THERAPEUTIC TAB PO SCH (08:54)
[2017-05-15] MEDS: FOLIC ACID 1 MG TAB PO SCH (08:54)
--- NOTE | 2017-05-15 08:54 | HHI.PR ---
Subjective Remarks Follow-up A. fib . Heart rate 108 patient not comfortable complaining of surgical pain. Denies chest pain and palpitations. Discussed with RN Objective Vitals Vital Signs Date Time Temp Pulse Resp B/P Pulse Ox O2 Delivery O2 Flow Rate FiO2 05/15/17 08:00 99.2 108 18 111/62 92 05/15/17 03:45 98.9 102 19 105/54 94 05/14/17 23:45 96.7 99 19 115/63 95 05/14/17 19:34 96.7 94 18 123/64 96 05/14/17 19:01 Nasal Cannula 3.00 05/14/17 16:00 96.2 98 18 154/80 98 05/14/17 15:58 98 Nasal Cannula 2.00 05/14/17 15:45 98 19 133/83 96 Nasal Cannula 3 05/14/17 15:30 100 24 146/80 95 Nasal Cannula 3 05/14/17 15:15 97 19 141/78 93 Nasal Cannula 3 05/14/17 15:00 102 20 146/80 93 Nasal Cannula 3 05/14/17 14:45 94 19 153/83 93 Simple Mask 6 05/14/17 14:36 97.5 92 16 183/94 93 Simple Mask 6 05/14/17 14:35 98 I/O 05/14/17 05/14/17 05/14/17 05/15/17 05/15/17 05/15/17 07:00 15:00 23:00 07:00 15:00 23:00 Intake Total 830 ml 2617 ml 722 ml 1401 ml Output Total 545 ml 1000 ml 450 ml Balance 830 ml 2072 ml -278 ml 951 ml Intake Oral 0 ml 0 ml 360 ml 480 ml IV Total 202 ml 362 ml 921 ml FFP 628 ml 317 ml Other 2300 ml Output Urine Total 545 ml 1000 ml 450 ml # Voids 3 # Bowel Movements 0 0 0 0 Result Diagram: 05/15/17 0516 05/15/17 0516 Imaging Last Impressions Femur X-Ray 05/14/17 0000 Signed Impressions: Service Date/Time: Sunday, May 14, 2017 13:27 - CONCLUSION: Anatomic alignment. Cristhian Mcneal MD FACR Objective Remarks GENERAL: This is a well-nourished, well-developed patient, in distress due to pain SKIN: No rashes, ecchymoses or lesions. Cool and dry. HEAD: Atraumatic. Normocephalic. No temporal or scalp tenderness. EYES: Pupils equal round and reactive. Extraocular motions intact. No scleral icterus. No injection or drainage. ENT: Nose without bleeding or purulent drainage. Airway patent. NECK: Trachea midline. No JVD or lymphadenopathy. Supple and nontender. CARDIOVASCULAR: Fast rate and irregular rhythm without murmurs, gallops, or rubs. RESPIRATORY: Clear to auscultation. Breath sounds equal bilaterally. No wheezes , rales, or rhonchi. GASTROINTESTINAL: Abdomen soft, non-tender, nondistended. No guarding. MUSCULOSKELETAL: Extremities without clubbing, cyanosis, or edema. No joint tenderness, effusion, or edema noted. NEUROLOGICAL: Awake and alert. Cranial nerves II through XII intact. Motor and sensory grossly within normal limits. Five out of 5 muscle strength in all muscle groups. Speech clear and fluent. Procedures Open reduction internal fixation left intertrochanteric hip fracture,, open reduction total fixation left femoral shaft A/P Problem List: (1) Closed fracture of proximal end of femur ICD Code: S72.009A Status: Acute Assessment and Plan Closed fracture left femur -Status post repair continue pain management with Lortab and IV morphine for breakthrough pain, wound care, PT, incentive spirometry and DVT prophylaxis with Lovenox and Coumadin per orthopedic surgery Diabetes- Continue home regimen of Glipizide 10mg daily -Finger sticks q ac and hs -Sliding scale insulin. Atrial Fibrillation with mild RVR secondary to pain -Continue Metoprolol 25 mg q 12 hr -Coumadin has been restarted Acute kidney injury denies history of kidney disease. Improved. Discontinue IV hydration(currently on IV fluid because of IV antibiotic) and avoid nephrotoxins. Hyperlipidemia. Continue statin Alcohol abuse -[facility] protocol -Thiamine -Folic acid -multivitamin GI prophylaxis: Pepcid DVT prophylaxis: SCD's and Coumadin Discharge Planning Rehabilitation or discharge back to [facility] Problem Qualifiers (1) Closed fracture of proximal end of femur: Qualified Code: S72.002A - Closed fracture of proximal end of femur, left, initial encounter Costa Palencia MD May 15, 2017 08:54
[2017-05-15] MEDS: LISINOPRIL 5 MG TAB PO SCH (08:55)
[2017-05-15] MEDS: SODIUM CHLORIDE 0.9% FLUSH 5 ML FLUSH IVF SCH ×2 (08:55→21:00)
[2017-05-15] MEDS: METOPROLOL TARTRATE 25 MG TAB PO SCH ×2 (08:55→21:49)
[2017-05-15] MEDS ORDERED: WARFARIN SOD 10 MG TAB PO SCH (09:00)
[2017-05-15] MEDS: VANCOMYCIN INJ 1,000 MG in SODIUM CHLOR 0.9% 250 ML INJ 250 ML IV SCH (11:44)
--- NOTE | 2017-05-15 13:46 | PD.ORT.PN ---
Subjective Subjective Remarks Patient comfortable. Pain controlled. Objective Vitals Vital Signs Date Time Temp Pulse Resp B/P Pulse Ox O2 Delivery O2 Flow Rate FiO2 05/15/17 12:00 99.2 102 18 107/68 93 05/15/17 08:50 104 05/15/17 08:00 99.2 108 18 111/62 92 05/15/17 03:45 98.9 102 19 105/54 94 05/14/17 23:45 96.7 99 19 115/63 95 05/14/17 19:34 96.7 94 18 123/64 96 05/14/17 19:01 Nasal Cannula 3.00 05/14/17 16:00 96.2 98 18 154/80 98 05/14/17 15:58 98 Nasal Cannula 2.00 05/14/17 15:45 98 19 133/83 96 Nasal Cannula 3 05/14/17 15:30 100 24 146/80 95 Nasal Cannula 3 05/14/17 15:15 97 19 141/78 93 Nasal Cannula 3 05/14/17 15:00 102 20 146/80 93 Nasal Cannula 3 05/14/17 14:45 94 19 153/83 93 Simple Mask 6 05/14/17 14:36 97.5 92 16 183/94 93 Simple Mask 6 05/14/17 14:35 98 I/O 05/14/17 05/14/17 05/14/17 05/15/17 05/15/17 05/15/17 07:00 15:00 23:00 07:00 15:00 23:00 Intake Total 830 ml 2617 ml 722 ml 1401 ml Output Total 545 ml 1000 ml 450 ml Balance 830 ml 2072 ml -278 ml 951 ml Intake Oral 0 ml 0 ml 360 ml 480 ml IV Total 202 ml 362 ml 921 ml FFP 628 ml 317 ml Other 2300 ml Output Urine Total 545 ml 1000 ml 450 ml # Voids 3 # Bowel Movements 0 0 0 0 Result Diagram: 05/15/1716 05/15/17 0516 Other Results Laboratory Tests Test 05/15/17 05:16 Prothrombin Time 12.6 SEC (9.8-11.6) Prothromb Time International 1.1 RATIO Ratio Objective Remarks LLE: dressing C/D/I calves soft negative ruthie's NVI Assessment & Plan Problem List: (1) Closed fracture of proximal end of femur Assessment and Plan 1) Left Periprosthetic Proximal Femur fx -physical therapy - non weight bearing -pain management -DVT prophylaxis - Lovenox -D/c planning anticipating SNF -Dr. Lugo spoke with patient Js Valdez May 15, 2017 13:46
[2017-05-15] MEDS: ENOXAPARIN SODIUM 30 MG/0.3 ML SYRINGE SQ SCH (14:00)
[2017-05-15] MEDS: LACTATED RINGER'S 1000 ML INJ 1,000 ML IV SCH (14:54)
[2017-05-15] MEDS: WARFARIN SOD 10 MG TAB PO SCH (16:33)
[2017-05-15] MEDS: ATORVASTATIN 20 MG TAB PO SCH (21:49)
[2017-05-16] VITALS (10 sets, daily range): BP systolic 106–141; BP diastolic 56–77; PULSE 85–113; RESP 17–19; TEMP 99.1–99.9; O2SAT 93–96
[2017-05-16] MEDS: ENOXAPARIN SODIUM 30 MG/0.3 ML SYRINGE SQ SCH ×2 (01:22→14:14)
[2017-05-16] MEDS: VANCOMYCIN INJ 1,000 MG in SODIUM CHLOR 0.9% 250 ML INJ 250 ML IV SCH (01:24)
[2017-05-16] MEDS: LACTATED RINGER'S 1000 ML INJ 1,000 ML IV SCH ×2 (02:41→14:15)
[2017-05-16] MEDS: ceFAZolin 2 GM PREMIX 50 ML IV SCH ×2 (04:14→11:26)
[2017-05-16] MEDS: PCA - TOTAL MG MORPHINE DELIVERED PER SHIFT SCH ×3 (05:41→20:50)
[2017-05-16] MEDS: INSULIN ASPART SUPPLEMENTAL SCALE SQ SCH ×4 (07:00→20:50)
[2017-05-16] MEDS: ACETAMINOPHEN/HYDROcodone 325 MG/10 MG TAB PO PRN ×5 (08:03→21:58)
[2017-05-16] MEDS: LISINOPRIL 5 MG TAB PO SCH (08:04)
[2017-05-16] MEDS: CALCIUM/VITAMIN D 250 MG/125 U TAB PO SCH ×3 (08:04→17:06)
[2017-05-16] MEDS: MULTIVITAMINS/MINERALS THERAPEUTIC TAB PO SCH (08:04)
[2017-05-16] MEDS: THIAMINE HCL 100 MG TAB PO SCH (08:04)
[2017-05-16] MEDS: METOPROLOL TARTRATE 25 MG TAB PO SCH ×2 (08:04→20:42)
[2017-05-16] MEDS: DOCUSATE SODIUM 100 MG CAP PO SCH ×2 (08:04→20:43)
[2017-05-16] MEDS: CHOLECALCIFEROL (VIT D3) 1000 UNIT TAB PO SCH (08:04)
[2017-05-16] MEDS: FOLIC ACID 1 MG TAB PO SCH (08:04)
[2017-05-16] MEDS: FAMOTIDINE 20 MG TAB PO SCH ×2 (08:04→20:42)
[2017-05-16] MEDS: SODIUM CHLORIDE 0.9% FLUSH 5 ML FLUSH IVF SCH ×2 (08:05→20:42)
[2017-05-16] MEDS: glipiZIDE 10 MG TAB PO SCH ×2 (08:05→17:06)
--- NOTE | 2017-05-16 08:13 | PD.ORT.PN ---
Subjective Subjective Remarks Patient comfortable. Pain controlled. Objective Vitals Vital Signs Date Time Temp Pulse Resp B/P Pulse Ox O2 Delivery O2 Flow Rate FiO2 05/16/17 04:30 99.5 99 19 141/77 93 05/16/17 04:00 90 05/16/17 02:56 Room Air 05/16/17 00:20 99.1 97 19 124/69 94 05/16/17 00:00 85 05/15/17 22:43 18 05/15/17 22:00 18 05/15/17 20:25 99.4 104 19 119/65 93 05/15/17 20:00 112 05/15/17 16:00 99.3 102 17 143/79 96 05/15/17 12:00 99.2 102 18 107/68 93 05/15/17 08:50 104 I/O 05/15/17 05/15/17 05/15/17 05/16/17 05/16/17 05/16/17 07:00 15:00 23:00 07:00 15:00 23:00 Intake Total 1401 ml 720 ml 240 ml 240 ml Output Total 450 ml 750 ml 200 ml 575 ml Balance 951 ml -30 ml 40 ml -335 ml Intake Oral 480 ml 720 ml 240 ml 240 ml IV Total 921 ml Output Urine Total 450 ml 750 ml 200 ml 575 ml Stool Total 0 ml # Bowel Movements 0 0 0 Result Diagram: 05/15/17 0516 05/15/17 0516 Objective Remarks LLE: dressing C/D/I calves soft negative ruthie's NVI Assessment & Plan Problem List: (1) Closed fracture of proximal end of femur Assessment and Plan POD 2 - Open reduction internal fixation left intertrochanteric hip fracture, open reduction total fixation left femoral shaft -physical therapy - non weight bearing -pain management -DVT prophylaxis - Lovenox -D/c planning anticipating SNF -Monitor Js Valdez May 16, 2017 08:13
--- NOTE | 2017-05-16 09:56 | HHI.PR ---
Subjective Remarks Follow-up A. fib. Tachycardia improving. Denies palpitations. Still no BM denies nausea and abdominal pain discussed with RN, patient agrees to have Bishop catheter removed Objective Vitals Vital Signs Date Time Temp Pulse Resp B/P Pulse Ox O2 Delivery O2 Flow Rate FiO2 05/16/17 08:00 99.4 106 17 134/63 96 05/16/17 04:30 99.5 99 19 141/77 93 05/16/17 04:00 90 05/16/17 02:56 Room Air 05/16/17 00:20 99.1 97 19 124/69 94 05/16/17 00:00 85 05/15/17 22:43 18 05/15/17 22:00 18 05/15/17 20:25 99.4 104 19 119/65 93 05/15/17 20:00 112 05/15/17 16:00 99.3 102 17 143/79 96 05/15/17 12:00 99.2 102 18 107/68 93 I/O 05/15/17 05/15/17 05/15/17 05/16/17 05/16/17 05/16/17 07:00 15:00 23:00 07:00 15:00 23:00 Intake Total 1401 ml 720 ml 240 ml 240 ml Output Total 450 ml 750 ml 200 ml 575 ml Balance 951 ml -30 ml 40 ml -335 ml Intake Oral 480 ml 720 ml 240 ml 240 ml IV Total 921 ml Output Urine Total 450 ml 750 ml 200 ml 575 ml Stool Total 0 ml # Bowel Movements 0 0 0 Result Diagram: 05/15/17 0516 05/15/17 0516 Imaging Last Impressions Femur X-Ray 05/14/17 0000 Signed Impressions: Service Date/Time: Sunday, May 14, 2017 13:27 - CONCLUSION: Anatomic alignment. Cristhian Mcneal MD FACR Objective Remarks GENERAL: This is a well-nourished, well-developed patient, in no distress SKIN: No rashes, ecchymoses or lesions. Cool and dry. HEAD: Atraumatic. Normocephalic. No temporal or scalp tenderness. EYES: Pupils equal round and reactive. Extraocular motions intact. No scleral icterus. No injection or drainage. ENT: Nose without bleeding or purulent drainage. Airway patent. NECK: Trachea midline. No JVD or lymphadenopathy. Supple and nontender. CARDIOVASCULAR: Fast rate and irregular rhythm without murmurs, gallops, or rubs. RESPIRATORY: Clear to auscultation. Breath sounds equal bilaterally. No wheezes , rales, or rhonchi. GASTROINTESTINAL: Abdomen soft, non-tender, nondistended. No guarding. MUSCULOSKELETAL: Extremities without clubbing, cyanosis, or edema. No joint tenderness, effusion, or edema noted. NEUROLOGICAL: Awake and alert. Cranial nerves II through XII intact. Motor and sensory grossly within normal limits. Five out of 5 muscle strength in all muscle groups. Speech clear and fluent. Procedures Open reduction internal fixation left intertrochanteric hip fracture,, open reduction total fixation left femoral shaft A/P Problem List: (1) Closed fracture of proximal end of femur ICD Code: S72.009A Status: Acute Assessment and Plan Closed fracture left femur -Status post repair continue pain management with Lortab and IV morphine for breakthrough pain, wound care, PT, incentive spirometry and DVT prophylaxis with Lovenox and Coumadin per orthopedic surgery Diabetes- Continue home regimen of Glipizide 10mg daily -Finger sticks q ac and hs -Sliding scale insulin. Atrial Fibrillation with mild RVR secondary to pain -Continue Metoprolol 25 mg q 12 hr -Coumadin has been restarted Acute kidney injury denies history of kidney disease. Improved status post IV hydration. Avoid nephrotoxins. Hyperlipidemia. Continue statin Alcohol abuse -[facility] protocol -Thiamine -Folic acid -multivitamin Constipation. Add senna Discontinue Bishop catheter GI prophylaxis: Pepcid DVT prophylaxis: SCD's and Coumadin Discharge Planning Stable for Rehabilitation or discharge back to [facility] Problem Qualifiers (1) Closed fracture of proximal end of femur: Qualified Code: S72.002A - Closed fracture of proximal end of femur, left, initial encounter Costa Palencia MD May 16, 2017 09:56
[2017-05-16] MEDS ORDERED: SENN8.6T15 PO (09:58)
[2017-05-16] MEDS: SENNOSIDES 8.6 MG TAB PO SCH ×2 (11:33→20:43)
[2017-05-16 18:29] LABS: INTERNATIONAL NORMALIZED RATIO 1.2 RATIO; PROTHROMBIN TIME - PATIENT 12.8 SEC (9.8-11.6)
[2017-05-16] MEDS: WARFARIN SOD 10 MG TAB PO SCH (18:33)
[2017-05-16] MEDS: ATORVASTATIN 20 MG TAB PO SCH (20:43)
[2017-05-17 00:20] VITALS: BP 116/60; PULSE 99; RESP 18; TEMP 99; O2SAT 94
[2017-05-17] MEDS: ACETAMINOPHEN/HYDROcodone 325 MG/10 MG TAB PO PRN ×3 (02:02→14:11)
[2017-05-17] MEDS: ENOXAPARIN SODIUM 30 MG/0.3 ML SYRINGE SQ SCH ×2 (02:02→14:11)
[2017-05-17] MEDS: LACTATED RINGER'S 1000 ML INJ 1,000 ML IV SCH (02:50)
[2017-05-17] MEDS: PCA - TOTAL MG MORPHINE DELIVERED PER SHIFT SCH ×2 (02:51→14:00)
[2017-05-17 03:50] VITALS: BP 110/67; PULSE 94; RESP 18; TEMP 98.1; O2SAT 94
--- NOTE | 2017-05-17 06:37 | PD.ORT.PN ---
Subjective Subjective Remarks Pain controlled. No new complaints Objective Vitals Vital Signs Date Time Temp Pulse Resp B/P Pulse Ox O2 Delivery O2 Flow Rate FiO2 05/17/17 03:50 98.1 94 18 110/67 94 05/17/17 03:24 Room Air 05/17/17 02:49 18 05/17/17 01:21 Room Air 05/17/17 00:20 99.0 99 18 116/60 94 05/16/17 20:15 107 05/16/17 20:10 99.9 113 18 106/57 95 05/16/17 18:10 96 05/16/17 16:00 99.4 108 18 117/64 96 05/16/17 12:00 99.1 90 17 113/56 94 05/16/17 08:00 99.4 106 17 134/63 96 05/16/17 08:00 Room Air I/O 05/16/17 05/16/17 05/16/17 05/17/17 05/17/17 05/17/17 07:00 15:00 23:00 07:00 15:00 23:00 Intake Total 240 ml 1280 ml Output Total 575 ml 2000 ml Balance -335 ml -720 ml Intake Oral 240 ml 1280 ml Output Urine Total 575 ml 2000 ml # Bowel Movements 0 0 Result Diagram: 05/15/17 0516 05/15/17 0516 Other Results Laboratory Tests Test 05/16/17 17:50 Prothrombin Time 12.8 SEC (9.8-11.6) Prothromb Time International 1.2 RATIO Ratio Objective Remarks LLE: dressing C/D/I calves soft negative ruthie's NVI Assessment & Plan Problem List: (1) Closed fracture of proximal end of femur Assessment and Plan POD 3 - Open reduction internal fixation left intertrochanteric hip fracture, open reduction total fixation left femoral shaft -physical therapy - non weight bearing -pain management -DVT prophylaxis - Lovenox -Discharge to rehabilitation when bed available -Follow-up appointment with Dr. Mcclain or PA in 2 weeks Darwin Carbajal Jr. May 17, 2017 06:37
[2017-05-17] MEDS ORDERED: WALKER/ADULT/FO1 MIS (06:39)
[2017-05-17] MEDS: INSULIN ASPART SUPPLEMENTAL SCALE SQ SCH ×2 (06:43→11:00)
[2017-05-17 07:45] VITALS: BP 143/79; PULSE 97; RESP 19; TEMP 97.7; O2SAT 97
[2017-05-17] MEDS: SENNOSIDES 8.6 MG TAB PO SCH (09:00)
[2017-05-17] MEDS: FAMOTIDINE 20 MG TAB PO SCH (09:00)
[2017-05-17] MEDS: SODIUM CHLORIDE 0.9% FLUSH 5 ML FLUSH IVF SCH (09:00)
--- NOTE | 2017-05-17 09:22 | HHI.PR ---
Subjective Remarks Follow-up A. fib, diabetes mellitus and constipation. He feels okay no complaints denies nausea, abdominal pain, chest pain and palpitations. Telemetry shows A. fib with CVR. Hypoglycemic this morning 63. Was asymptomatic. Patient received Colace and senna yesterday but no as needed medicines. Discussed with RN Objective Vitals Vital Signs Date Time Temp Pulse Resp B/P Pulse Ox O2 Delivery O2 Flow Rate FiO2 05/17/17 03:50 98.1 94 18 110/67 94 05/17/17 03:24 Room Air 05/17/17 02:49 18 05/17/17 01:21 Room Air 05/17/17 00:20 99.0 99 18 116/60 94 05/16/17 20:15 107 05/16/17 20:10 99.9 113 18 106/57 95 05/16/17 18:10 96 05/16/17 16:00 99.4 108 18 117/64 96 05/16/17 12:00 99.1 90 17 113/56 94 I/O 05/16/17 05/16/17 05/16/17 05/17/17 05/17/17 05/17/17 07:00 15:00 23:00 07:00 15:00 23:00 Intake Total 240 ml 1280 ml 720 ml Output Total 575 ml 2000 ml 1400 ml Balance -335 ml -720 ml -680 ml Intake Oral 240 ml 1280 ml 720 ml Output Urine Total 575 ml 2000 ml 1400 ml # Bowel Movements 0 0 0 Result Diagram: 05/15/17 0516 05/15/17 0516 Imaging Last Impressions Femur X-Ray 05/14/17 0000 Signed Impressions: Service Date/Time: Sunday, May 14, 2017 13:27 - CONCLUSION: Anatomic alignment. Cristhian Mcneal MD FACR Objective Remarks GENERAL: This is a well-nourished, well-developed patient, in no distress SKIN: No rashes, ecchymoses or lesions. Cool and dry. HEAD: Atraumatic. Normocephalic. No temporal or scalp tenderness. EYES: Pupils equal round and reactive. Extraocular motions intact. No scleral icterus. No injection or drainage. ENT: Nose without bleeding or purulent drainage. Airway patent. NECK: Trachea midline. No JVD or lymphadenopathy. Supple and nontender. CARDIOVASCULAR: Regular rate and irregular rhythm without murmurs, gallops, or rubs. RESPIRATORY: Clear to auscultation. Breath sounds equal bilaterally. No wheezes , rales, or rhonchi. GASTROINTESTINAL: Abdomen soft, non-tender, nondistended. No guarding. MUSCULOSKELETAL: Extremities without clubbing, cyanosis, or edema. No joint tenderness, effusion, or edema noted. NEUROLOGICAL: Awake and alert. Cranial nerves II through XII intact. Motor and sensory grossly within normal limits. Five out of 5 muscle strength in all muscle groups. Speech clear and fluent. Nonfocal Procedures Open reduction internal fixation left intertrochanteric hip fracture,, open reduction total fixation left femoral shaft A/P Problem List: (1) Closed fracture of proximal end of femur ICD Code: S72.009A Status: Acute Assessment and Plan Closed fracture left femur -Status post repair continue pain management with Lortab and IV morphine for breakthrough pain, wound care, PT, incentive spirometry and DVT prophylaxis with Lovenox and Coumadin per orthopedic surgery Diabetes-hypoglycemic this morning. Decrease glipizide to 5 mg twice a day. Check A1c. Hypoglycemia protocol Finger sticks q ac and hs with sliding scale insulin. Atrial Fibrillation with CVR -Continue Metoprolol 25 mg q 12 hr -Coumadin has been restarted . Follow-up INR today Acute kidney injury denies history of kidney disease. Improved status post IV hydration. Avoid nephrotoxins. Hyperlipidemia. Continue statin Alcohol abuse -[facility] protocol -Thiamine -Folic acid -multivitamin Constipation. Continue Colace and senna . RN to give as needed medicines Discontinue Bishop catheter GI prophylaxis: Pepcid DVT prophylaxis: SCD's and Coumadin Discharge Planning Stable for Rehabilitation or discharge back to [facility] Problem Qualifiers (1) Closed fracture of proximal end of femur: Qualified Code: S72.002A - Closed fracture of proximal end of femur, left, initial encounter Costa Palencia MD May 17, 2017 09:22
[2017-05-17] MEDS ORDERED: GLIP10TA6 PO (09:24)
[2017-05-17] MEDS: LISINOPRIL 5 MG TAB PO SCH (09:40)
[2017-05-17] MEDS: THIAMINE HCL 100 MG TAB PO SCH (09:40)
[2017-05-17] MEDS: MULTIVITAMINS/MINERALS THERAPEUTIC TAB PO SCH (09:40)
[2017-05-17] MEDS: CALCIUM/VITAMIN D 250 MG/125 U TAB PO SCH ×2 (09:41→11:54)
[2017-05-17] MEDS: METOPROLOL TARTRATE 25 MG TAB PO SCH (09:41)
[2017-05-17] MEDS: FOLIC ACID 1 MG TAB PO SCH (09:41)
[2017-05-17] MEDS: CHOLECALCIFEROL (VIT D3) 1000 UNIT TAB PO SCH (09:41)
[2017-05-17] MEDS: DOCUSATE SODIUM 100 MG CAP PO SCH (09:41)
[2017-05-17 11:15] VITALS: BP 112/69; PULSE 98; RESP 19; TEMP 98.6; O2SAT 95
[2017-05-17] MEDS ORDERED: BISACODYL 10 MG SUPP RECTAL ONE (12:30)
[2017-05-17 13:57] LABS: INTERNATIONAL NORMALIZED RATIO 1.1 RATIO; PROTHROMBIN TIME - PATIENT 12.4 SEC (9.8-11.6)
[2017-05-17] MEDS ORDERED: glipiZIDE 5 MG TAB PO SCH (17:00)
[2017-05-17 22:07] LABS: HEMOGLOBIN A1a 1.6 %; HEMOGLOBIN A1b 1.8 %; HEMOGLOBIN Ao 83.4 %; HEMOGLOBIN LA1C 2.2 %; HEMOGLOBIN P3 3.8 %
== END 2017-05-17 14:58 | DRG 481 ==
LOC: N06A 20:25
PROVIDERS: ADMIT Orthopaedic Surgery Orthopaedic Trauma; ATTEND Orthopaedic Surgery Orthopaedic Trauma
PROC: 0QS704Z Reposition Left Upper Femur with Internal Fixation Device, Open Approach (ICD-10-PCS; 2017-05-14)
PROC: 0QS904Z Reposition Left Femoral Shaft with Internal Fixation Device, Open Approach (ICD-10-PCS; principal; 2017-05-14 11:12)
DX: S72.142A Displaced intertrochanteric fracture of left femur, initial encounter for closed fracture (principal); N17.9 Acute kidney failure, unspecified; D69.6 Thrombocytopenia, unspecified; E11.649 Type 2 diabetes mellitus with hypoglycemia without coma; M97.02XA Periprosthetic fracture around internal prosthetic left hip joint, initial encounter; S72.302A Unspecified fracture of shaft of left femur, initial encounter for closed fracture; I48.91 Unspecified atrial fibrillation; I10 Essential (primary) hypertension; D64.9 Anemia, unspecified; E78.5 Hyperlipidemia, unspecified; E78.00 Pure hypercholesterolemia, unspecified; K59.00 Constipation, unspecified; T45.515A Adverse effect of anticoagulants, initial encounter; F10.10 Alcohol abuse, uncomplicated; W01.0XXA Fall on same level from slipping, tripping and stumbling without subsequent striking against object, initial encounter; Y92.009 Unspecified place in unspecified non-institutional (private) residence as the place of occurrence of the external cause; Z79.01 Long term (current) use of anticoagulants; Z79.84 Long term (current) use of oral hypoglycemic drugs; Z91.81 History of falling; Z96.651 Presence of right artificial knee joint
CPT/HCPCS: 36430; 73551; 76000; 76937; 80048; 81001; 82550; 82652; 82948; 83036; 83735; 85025; 85610; 86850; 86900; 86901; 86920; 86927; 93005; 94150; C1713; C1769; J0131; J0690; J1580; J1650; J1815; J2270; J2370; J2405; J2710; J3370; J3430; J7050; J7120; L1830; P9017